=== PATIENT | male | born 1955 ===

== ENCOUNTER 2017-05-30 05:52 | Day surgery (SDC) | payer MEDICARE ==
[2017-05-25 11:44] VITALS: BMI 32.8
[2017-05-30] MEDS ORDERED: Lidocaine 1% Inj (20ml) ONE (07:33)
[2017-05-30] MEDS ORDERED: ceFAZolin IV 1 gm in Dextrose 1 GM/50 ML BAG IVPB ONE (07:33)
[2017-05-30] MEDS ORDERED: Lactated Ringer's 1,000 ML IV ONE (07:43)
[2017-05-30] MEDS ORDERED: Propofol 10 mg/ml Inj (20 ML) ONE (07:47)
[2017-05-30] MEDS ORDERED: Midazolam 2 MG/2 ML VIAL ONE (07:47)
[2017-05-30] MEDS: Lidocaine 2% w Epi 1:100,000 Inj IJ ONE ×2 (08:07→08:10)
[2017-05-30] MEDS ORDERED: HYDROmorphone 0.5 mg/0.5 ml ISec IVP PRN (08:29)
[2017-05-30] MEDS ORDERED: Rocuronium 10 mg/ml (5 ml) ONE (08:31)
[2017-05-30] MEDS ORDERED: Succinylcholine Chloride 20 mg/ml Syr (5 ml) IV ONE (08:31)
--- NOTE | 2017-05-30 08:49 | PCM.SURG1 ---
Surgeon's Initial Post Op Note - Surgeon's Notes Surgeon: Dr. Boyer Furniture Finisher Apprentice: Dr. Bruce PGY2 Type of Anesthesia: General LMA Pre-Operative Diagnosis: sebaceous cyst of back Operative Findings: see dictation Post-Operative Diagnosis: same Operation Performed: excision of sebaceous cyst Specimen/Specimens Removed: sebaceous cyst Estimated Blood Loss: EBL {In ML}: 5 Blood Products Given: N/A Drains Used: No Drains Post-Op Condition: Good Date of Surgery/Procedure: 05/30/17 Time of Surgery/Procedure: 07:45
[2017-05-30 09:46] VITALS: PULSE 53
[2017-05-30 10:07] VITALS: BP 123/70; RESP 18; TEMP 97.6; O2SAT 97
--- NOTE | 2017-05-30 15:06 | OP ---
PROCEDURE DATE: 05/30/2017 PREOPERATIVE DIAGNOSIS: Sebaceous cyst of back. POSTOPERATIVE DIAGNOSIS: Sebaceous cyst of back. PROCEDURE CARRIED OUT: Excision of 3 cm sebaceous cyst of back. SURGEON: Dr. Boyer. CATH LAB NURSE: . ANESTHESIOLOGIST: Dr. Amato. TYPE OF ANESTHESIA: LMA. IDENTIFICATION: An older middle-aged man who presents with a painful cyst to the back. OPERATIVE FINDINGS: The cyst was removed in its entirety without any rupture of the sack. After excision of this and after a standard skin prep had been carried out, the wound was approximated, closed with Dermabond and the skin closed with Steri-Strips. Blood loss from the procedure was less than 10 mL. Reyes Boyer Jr., MD
== END 2017-05-30 10:08 | disposition home or self-care (01) ==
LOC: C.SDS 05:52
PROVIDERS: ATTEND Surgery Vascular Surgery
DX: L72.3 Sebaceous cyst (principal)
CPT/HCPCS: 11403; 82948; 88305; J0690; J1885; J2001; J2250; J2704; J3010; J7120